=== PATIENT | female | born 1970 | race Caucasian/White ===

== ENCOUNTER 2021-05-29 07:12 | Day surgery (SDC) | payer OTHER, SELFPAY ==
--- NOTE | 2021-05-28 13:16 | W.PM.HP.N ---
Date of service: 05/29/21 Time of Service: 08:00 Assessment and Plan Assessment and plan (1) Left lower quadrant pain: Status: Acute Assessment and plan: Risks: Informed consent is obtained for the procedural (explained in simple layman's terms that the pt and/or family could understand) explaining risks vs benefits and alternatives to the procedure and consequences if we do not do the procedure and need/rational for the procedure. Risks include but are not limited to:bleeding, infection, perforation of colon. This would necessitate emergency surgery to repair the damage w/ possible ostomy; and other associated complications w/ the required surgery. Also complications of anesthesia including aspiration,WV/CVA/. Patch for nausea. I did review the case with anesthesia and they feel she is acceptable risk for anesthesia. There is 1 (2) Hypothyroidism: Status: Chronic (3) Fibromyalgia: Status: Acute (4) Sinus tachycardia: Status: Acute (5) Migraine: Status: Chronic (6) JANKI (obstructive sleep apnea): Status: Chronic (7) Depressive disorder: Status: Chronic (8) Generalized anxiety disorder: Status: Acute (9) Obesity: Status: Chronic (10) Type 2 diabetes mellitus: Status: Acute (11) CHI (closed head injury): Status: Acute History of Present Illness Narrative: Left lower quadrant pain: -I did review the CT of the abdomen pelvis from [facility]. Some nonspecific thickening in the left lower quadrant she does not have diverticula. I also was able to review her MRI which showed some mild iliopsoas which is nonspecific and may or may not be related to her recent trauma I also did discuss the case with anesthesia. They would like to see her symptom free before she has anesthesia. She has used a scopolamine patch in the past. This has very well for postop nausea vomiting. We are also going to be using propofol, which should not cause any postop nausea vomiting. She does wear a CPAP mask.. It has been having LLQ pain since last summer. Denies trauma or illness. She says it was not constant- it would wax and wane. Her iron level is low as well. However, she is not anemic. She had uncle - rectal cancer. aunt had CRC. She has never had a phone before. She has not noticed blood in her stools. She is not noticed black tarry stools. She is not currently on iron therapy. She has not noticed any changes in her bowel habits. She has not had any unexplained weight loss. She does have a significant history of reflux. She does feel it is under good control at this point. She has no pain or difficulty swallowing. She says her bowels are very irregular- alternate b/t 3x a day to nothing for 3-4 days. alternates b/t diarrhea adn constipation. A Stafford 1-2 or 6/. She had a CHI on 03/28. She suffers from blurry vision/dizziness and cannot drive. Nausea is gone. JONES- rare. Her s/s were mostly dizzy is getting better, as well as internal & fogginess, concentration. The dizziness is so bad that she currently is not driving. recent MRI- [facility] last Tuesday. This was normal. PONV hx of scop patch helped last sx. -She has a history of heart palpitations. She was seen by cardiology at [facility]. This was thought to be due to her Elavil. She has since stopped the Elavil and has not had any more problems. There consultation is attached. She still has been having left lower quadrant pain off and on. Last for a few minutes. It happens 3 or 4 times a day. She occasionally will have diarrhea. She is not having any bleeding. She is not had any changes in her medications. She is still having dizziness and confusion. She did have a negative MRI. She is seeing neurology for follow-up of her closed head injury. She does have a scopolamine patch on today. Today patient is feeling okay. She completed the bowel prep and the resulting effluent is just a clear yellow color. She is not having any nausea. She is not having any abdominal pain. She has no chest pain or shortness of breath. She has no productive cough or fevers or other signs of Covid. She has had no changes in her recent medications or health status. All questions are answered to her satisfaction. She is stable to proceed with colonoscopy today. Review of Systems All systems reviewed & are unremarkable except as noted in HPI and below PFSH Medical History Depressive disorder Fatigue Fibromyalgia Generalized anxiety disorder Hypothyroidism Insomnia Left lower quadrant pain Migraine Obesity JANKI (obstructive sleep apnea) Sinus tachycardia Type 2 diabetes mellitus Surgical History History of arthroscopic knee surgery X3 History of breast lump removal Social History Smoking/Tobacco Use Status: Never Smoking risk assessment performed?: Yes Drug use: Never Substance use type: does not use Do you feel safe at home: Yes Do you feel safe in your relationship?: Yes Meds Allergies and Home Medications Allergies Allergy/AdvReac Type Severity Reaction Status Date / Time No Known Allergies Allergy Verified 04/23/21 11:26 Home Medications Medication Instructions Recorded Confirmed Type citalopram 10 mg tablet 10 mg PO DAILY 03/26/21 05/29/21 History citalopram 20 mg tablet 20 mg PO DAILY 03/26/21 05/29/21 History cyclobenzaprine 10 mg tablet 10 mg PO HS 03/26/21 05/29/21 History ibuprofen 200 mg tablet 200 mg PO Q6H PRN 03/26/21 05/29/21 History levothyroxine 25 mcg capsule 50 mcg PO DAILY 03/26/21 05/29/21 History medroxyprogesterone 150 mg/mL 150 mg IM [id number] 03/26/21 05/29/21 History intramuscular suspension metformin 1,000 mg tablet 1,000 mg PO BID 03/26/21 05/29/21 History pregabalin 200 mg capsule 200 mg PO BID 03/26/21 05/29/21 History topiramate 25 mg tablet 25 mg PO DAILY 03/26/21 05/29/21 History ferrous sulfate 27 mg iron tablet 27 mg PO DAILY 04/23/21 05/29/21 History meclizine 25 mg tablet 25 mg PO DAILY 04/23/21 05/29/21 History melatonin 10 mg capsule 10 mg PO HS PRN 04/23/21 05/29/21 History Exam Resp Effort & Inspection: normal respiratory effort and able to speak in complete sentences Auscultation: clear to auscultation bilaterally Cardio Rate: regular rate Rhythm: regular rhythm GI Inspection: obesity Palpation: soft, no hernias, tender and No ascites Auscultation: normal bowel sounds Other: no abdominal pain today
[2021-05-29 07:15] VITALS: BP 113/70; PULSE 60; RESP 18; TEMP 36.6; O2SAT 98
--- NOTE | 2021-05-29 07:49 | W.ANESPRE ---
General Info Date of Service Date Performed: 05/29/21 Height: 5 ft 4.96 in Weight: 93 kg Body Mass Index (BMI): 34.1 Surgical Procedure: Operation Date: 05/29/21 08:35 Proposed Procedures Side Surgeon chago Coppola, DO Meds Allergies and Home Medications Allergies Allergy/AdvReac Type Severity Reaction Status Date / Time No Known Allergies Allergy Verified 04/23/21 11:26 Home Medication Medication Instructions Recorded citalopram 10 mg tablet 10 mg PO DAILY 03/26/21 citalopram 20 mg tablet 20 mg PO DAILY 03/26/21 cyclobenzaprine 10 mg tablet 10 mg PO HS 03/26/21 ibuprofen 200 mg tablet 200 mg PO Q6H PRN 03/26/21 levothyroxine 25 mcg capsule 50 mcg PO DAILY 03/26/21 medroxyprogesterone 150 mg/mL 150 mg IM [id number] 03/26/21 intramuscular suspension metformin 1,000 mg tablet 1,000 mg PO BID 03/26/21 pregabalin 200 mg capsule 200 mg PO BID 03/26/21 topiramate 25 mg tablet 25 mg PO DAILY 03/26/21 ferrous sulfate 27 mg iron tablet 27 mg PO DAILY 04/23/21 meclizine 25 mg tablet 25 mg PO DAILY 04/23/21 melatonin 10 mg capsule 10 mg PO HS PRN 04/23/21 Current Visit Medications: Current Medications Generic Name Dose Route Start Last Admin Trade Name Freq PRN Reason Stop Dose Admin Hyoscyamine Sulfate 0.125 mg 05/28/21 22:05 Hyoscyamine 0.125 Mg Sl/Oral/Chew SL DIRECTED PRN Ringer's Solution 1,000 mls @ 80 mls/hr 05/29/21 06:00 IV 06/27/21 23:59 INFUSION [facility] IV Miscellaneous Supplies 1 each 05/29/21 06:00 Iv Access IV 06/27/21 23:59 DIRECTED [facility] Ondansetron HCl 4 mg 05/28/21 22:05 Ondansetron 4 Mg/2 Ml Vial IVP Q4H PRN PRN Nausea / Vomiting Scopolamine HBr 1 mg 05/29/21 06:00 Scopolamine 1 Mg/3 Days Patch TD PREOP [facility] Sodium Chloride 0 ml 05/29/21 06:00 Normal Saline Flush 10 Ml Syr IV 06/27/21 23:59 PRN PRN Sodium Chloride 0 ml 05/29/21 06:00 Normal Saline 10 Ml Vial IJ 06/27/21 23:59 DIRECTED PRN Sterile Water 0 ml 05/29/21 06:00 Water,Injection,Sterile 10 Ml Vial IJ 06/27/21 23:59 DIRECTED PRN PFSH Active Problems Active Problems: Problem Status Onset Code CHI (closed head injury) S09.90XA Left lower quadrant pain R10.32 Hypothyroidism E03.9 Fatigue R53.83 Fibromyalgia M79.7 Sinus tachycardia R00.0 Migraine G43.909 JANKI (obstructive sleep apnea) G47.33 Insomnia G47.00 Depressive disorder F32.9 Generalized anxiety disorder F41.1 Obesity E66.9 Type 2 diabetes mellitus E11.9 Medical History Medical History Depressive disorder Fatigue Fibromyalgia Generalized anxiety disorder Hypothyroidism Insomnia Left lower quadrant pain Migraine Obesity JANKI (obstructive sleep apnea) Sinus tachycardia Type 2 diabetes mellitus Surgical History Surgical History History of arthroscopic knee surgery X3 History of breast lump removal Tobacco Smoking/Tobacco Use Status: Never Substance Use Substance use: Never Substance use type: does not use Vital Signs and Lab Results Vital Signs Most Recent Vital Signs in EMR: Temp Pulse Resp BP Pulse Ox 36.6 C 60 18 113/70 98 05/29/21 07:15 05/29/21 07:15 05/29/21 07:15 05/29/21 07:15 05/29/21 07:15 Point of Care Results Point of Care Results: Finger Stick Blood Glucose 105 05/29/21 07:42 Lab Results Blood Type / Crossmatch: No Data to Display Complete Blood Count: No Data to Display Complete Metabolic Panel: No Data to Display Liver Function Panel: No Data to Display Coagulation Panel: No Data to Display Cardiac Panel: No Data to Display Arterial Blood Gas: No Data to Display Venous Blood Gas: No Data to Display Pancreas Panel: No Data to Display Thyroid Panel: No Data to Display Infectious Disease: No Data to Display Blood Cultures: No Data to Display Toxicology Panel: No Data to Display Panel: No Data to Display Imaging and Studies Imaging and Studies EKG Summary: 2019: ST otherwise normal. Echocardiogram Summary: 2019: LVEF 65%, PAS 23.26 mmHg. Anesthesia Assessment and Plan Anesthesia History Personal History: PONV Family History: No Family History of Anesthesia Complications Exercise Tolerance Exercise Tolerance: Metabolic Equivalents>4 Cardiac & Pulmonary Exam Cardiac Exam: Normal S1/S2 Heart Sounds Pulmonary Exam: Clear Bilateral Breath Sounds Airway Exam Known Difficult Airway: No Mallampati Class: 2 Mouth Opening: Normal (> 3cm) Thyromental Distance: Greater than 3 cm Neck Range of Motion: Full ROM Neck Circumference: Thick Teeth Condition: Normal Dentition ASA Classification ASA Score: ASA 2 Emergency Case?: No NPO Status NPO Status: NPO Clears >2 hours, Solids >8 hours Status Status: Not Relevant due to Medical History Anesthesia Plan Resuscitation Status: Full Code Anesthesia Technique: General Anesthesia Airway Planned: Natural Airway Monitors Used: Standard Monitors Preoperative Comments:: 50 yo female for colo for LLQ pain since last summer, family history of colon cancer. concussion on march 25 still with symptoms, have appt with neurology soon.
[2021-05-29] MEDS: Scopolamine 1 MG/3 DAYS PATCH TD (07:51)
[2021-05-29] MEDS: Lactated Ringers 1,000 ML 80 ML IV (08:05)
[2021-05-29 08:20] VITALS: BMI 34.1
--- NOTE | 2021-05-29 08:30 | BOWEL_PTH ---
PATIENT: Key Del Rio LOC: [facility] U#:[id number] AGE/SX: 50/F ROOM: RE05/29/[address]: Denise Coppola : 1970 BED: DIS: 05/29/2021 SPEC #: [id number] RECD: 05/29/21 12:24 STATUS: JOLANTA REGabriela #: [id number] LUIS: 05/29/21 08:[address]: Denise Coppola DEPT: Surgical Specimen RECD BY: Monica Villarreal ENTERED: 05/29/21 12:25 SP TYPE: Bowel OTHR DR: Lyudmila Banerjee Tissues: 1 - BIOPSY BOWEL 2 - BIOPSY BOWEL 3 - BIOPSY BOWEL Procedures: GROSS AND MICRO LEVEL 4 Comments: [id number]
--- NOTE | 2021-05-29 08:51 | W.COLOREPORT ---
Date of service: 05/29/21 Time of Service: 08:51 Colonoscopy Report Date of procedure: 05/29/21 Pre-op diagnosis general: llq pain/+ fam Hx Post-op diagnosis procedure note: other (polyp) Surgeon: Denise Coppola Anesthesia Type: General:No Airway Estimated blood loss (mL): 1 Pathology: other Complications: None Disposition: same day Prep: Miralax/Dulcolax Retraction Time: 10 Procedure Description: After informed consent was obtained the patient was taken to the procedure room and placed in a left decubitous position. Monitors were applied and a time out was done. The patients name, date of , procedure, allergies to medications and metal in their body was reviewed. The patient was then sedated. Once sedated and comfortable a rectal exam was done. External exam shows some small external hemorrhoids. Internal exam revealed a normal sphincter tone and no palpable masses. The scope was then introduced and retrofelexed. No internal hemorrhoids were identified. The scope was then advanced to the cecum without difficulty. The TI and appendiceal orifice were identified. The prep was adequate. The scope was then slowly retracted over 10 minutes back into the rectum. She had a small less than 5 cm flat polyp at 30 cm. This is removed with a cold biting forcep. Biopsy was taken with cold biopsy forceps also at 30 cm because of the chronic pain she has been having. All specimen is retrieved and no bleeding is noted. No diverticula were visualized today. The scope was removed and the patient was woken up and taken back to Same day surgery in stable condition. The patient tolerated the procedure well and there were no immediate complications. Follow up: The patient should follow up in 5 years unless they develop changes in bowel habits or other new gastrointestinal complaints.
[2021-05-29 08:55] VITALS: BP 105/65; PULSE 59; RESP 16; TEMP 36.1; O2SAT 94
--- NOTE | 2021-05-29 08:57 | W.ANESPOSTOP ---
Postoperative Evaluation Date, Time and Location Date Performed: 05/29/21 Time Performed: 08:58 Patient Location: Day Surgery Unit Vital Signs Most Recent Imported Vital Signs: Most Recent Vital Signs Temp Pulse Resp BP Pulse Ox 36.6 C 60 18 113/70 98 05/29/21 07:15 05/29/21 07:15 05/29/21 07:15 05/29/21 07:15 05/29/21 07:15 Most Recent Manually Entered Vital Signs: Adult Blood Pressure: 105/65 Heart Rate: 58 Respirations: 12 Oxygen Saturation (%): 95 Temperature (C): 36.1 C Pain Score (0-10 Scale): 0 Assessment Mental Status: Awake (Alert & Oriented to Patient Baseline) Airway and Respiratory Function: Patent airway with normal (patient baseline) respiratory exam Cardiovascular Function: Hemodynamically Stable Hydration Status: Adequately Hydrated Nausea & Vomiting: No Nausea or Vomiting Pain: Pt. Denies Any Pain Peripheral Nerve Block: Patient did not receive a nerve block
[2021-05-29 08:58] VITALS: BP 105/65; PULSE 58; RESP 12; TEMPC 36.1; O2SAT 95
--- NOTE | 2021-05-29 09:38 | PDOC.DSDIS_ITS ---
Discharge Plan Disposition Patient Disposition: HOME Condition: Good Discharge Details Reason For Visit: colon scope Attending Provider: Denise Coppola Primary Care Provider: Lyudmila Banerjee Home Meds and New Rx's Prescriptions: Continued meclizine 25 mg tablet 25 mg PO DAILY RF: 0 ferrous sulfate 27 mg iron tablet 27 mg PO DAILY RF: 0 melatonin 10 mg capsule 10 mg PO HS PRNRF: 0 citalopram 10 mg tablet 10 mg PO DAILY RF: 0 citalopram 20 mg tablet 20 mg PO DAILY RF: 0 cyclobenzaprine 10 mg tablet 10 mg PO HS RF: 0 ibuprofen 200 mg tablet 200 mg PO Q6H PRNRF: 0 levothyroxine 25 mcg capsule 50 mcg PO DAILY RF: 0 medroxyprogesterone 150 mg/mL suspension 150 mg IM [id number] RF: 0 metformin 1,000 mg tablet 1,000 mg PO BID RF: 0 pregabalin 200 mg capsule 200 mg PO BID RF: 0 topiramate [Topamax] 25 mg tablet 25 mg PO DAILY RF: 0 Discharge Instructions Additional Instructions: DSU Colonoscopy Post- Op Instructions Instructions for Everyone who is given Anesthesia: For your safety, please do the following for the next twenty-four (24) hours: *Do Not operate a motor vehicle (car, truck, motorcycle, etc.) *Do Not drink alcoholic beverages or use any recreational drugs for the first 24 hours or while taking pain medications. The medications in your body may have a reaction that can be dangerous. *Do Not make any important decisions or sign any important papers. Findings: small polyp, otherwise normal Follow up: Repe My office will send a letter in 3 weeks time at in 5 yrs time Detailing as to what type of polyp it was. 1. No lifting over 20 pounds or strenuous activity for the first 24 hours after your procedure. After 24 hours there are no restrictions on your activity but you may feel fatigued for a few days. 2. After you arrive home you may have a light meal and return to your normal diet as you can tolerate it without feeling sick to your stomach. 3. You may have a bloated, gaseous feeling in your belly (abdomen) after a colonoscopy. Passing gas and belching will help. Walking or lying down on your left side with your knees flexed may relieve the discomfort. Call the office at [phone] (Office) or [phone] (Hospital) right away if you notice any of the following: a.Vomiting of blood or ?coffee ground stools?. b.Rectal bleeding 1Tbsp, blood clots or continuous bleeding. c.Severe belly (abdominal) pain. d.A hard distended belly (abdomen) and an inability to pass gas. 4. Please don?t expect to have a normal BM (bowel movement) for 2-3 days after your procedure. 5. If there are questions regarding the findings of your procedure, please contact your doctor 6. If you are unable to contact your doctor with a problem, contact the hospital at [phone]. 7. Continue all your regular medications unless directed otherwise. I understand the above instructions and have no questions. Signature of Patient or Adult Escort Name of Responsible Adult Escort Signature of Nurse Date/Time Activity:: see above Diet:: see above Discharge Orders Discharge Orders: Discharge Order (Routine); Ordered 05/28/21 Ordered By: Denise Coppola DS: Diagnosis Discharge Diagnosis (1) Left lower quadrant pain: Status: Acute (2) Hypothyroidism: Status: Chronic (3) Fibromyalgia: Status: Acute (4) Sinus tachycardia: Status: Acute (5) Migraine: Status: Chronic (6) JANKI (obstructive sleep apnea): Status: Chronic (7) Depressive disorder: Status: Chronic (8) Generalized anxiety disorder: Status: Acute (9) Obesity: Status: Chronic (10) Type 2 diabetes mellitus: Status: Acute (11) CHI (closed head injury): Status: Acute (12) Colon polyp: Status: Acute
== END 2021-05-29 09:50 | disposition home or self-care (01) ==
PROVIDERS: PCP Internal Medicine; Visit Provider Surgery
PROC: 0DJD8ZZ Inspection of Lower Intestinal Tract, Via Natural or Artificial Opening Endoscopic (ICD-10-PCS; CPT 45378; principal; 2021-05-29 08:30)
DX: R10.32 Left lower quadrant pain (principal); D12.5 Benign neoplasm of sigmoid colon; E03.9 Hypothyroidism, unspecified; M79.7 Fibromyalgia; E11.9 Type 2 diabetes mellitus without complications
CPT/HCPCS: 45380; 81025; 88305; J2001